=== PATIENT | female | born 1990 | race Caucasian/White ===

== ENCOUNTER → 2022-11-29 09:45 | Outpatient (CLI) | payer OTHER, SELFPAY ==
--- NOTE | ~2022-11-29 | US_ITS ---
US soft tissue abdomen 11/29/2022 10:14 Indication: Palpable abnormality of the umbilicus Procedure: High-resolution ultrasound of the umbilical location Comparison: No prior studies for comparison. Findings: There is hypoechoic soft tissue at the umbilicus measuring 2.4 x 1.3 x 2 cm with internal v ascularity. No evidence for bowel intrusion into the umbilicus. Impression: 1: Hypoechoic soft tissue at the umbilicus measuring up to 2.4 cm, possibly fat-containing umbilical hernia. Consider correlation with CT. Reviewed, dictated and finalized at location B. Impression: 1: Hypoechoic soft tissue at the umbilicus measuring up to 2.4 cm, possibly fat -containing umbilical hernia. Consider correlation with CT.
== END ==
PROVIDERS: PCP Nurse Practitioner; Visit Provider Nurse Practitioner
DX: K42.9 Umbilical hernia without obstruction or gangrene (principal)
CPT/HCPCS: 76705

== ENCOUNTER 2024-05-10 20:22 | Emergency (ER) | payer OTHER, BC, SELFPAY ==
--- NOTE | ~2024-05-10 | XR_ITS ---
XR chest 1V portable Ordering provider: Joesph Villegas MD History: 34 years Female with . cough . Comparison: None. FINDINGS: MEDIASTINUM: The cardiac silhouette is not enlarged. LUNGS: No infiltrates, effusions or pneumothorax. OTHER: No free air under the diaphragm. IMPRESSION: No acute cardiopulmonary pathology. Reviewed, dictated and finalized at location A.
[2024-05-10 20:35] VITALS: BP 147/93; PULSE 69; RESP 20; TEMP 36.7; O2SAT 100
[2024-05-10 22:21] VITALS: BP 163/98; PULSE 73; RESP 17; TEMP 36.5; O2SAT 100
[2024-05-10 22:43] LABS: Basophils Percent Auto 0.5 % (0.2-1.2); Eosinophils Absolute Auto 0.1 K/mm3 (0-0.3); Eosinophils Percent Auto 0.9 % (0-4.4); Hematocrit 41.9 % (37.0-47.0); Hemoglobin 13.7 g/dL (12.0-15.0); Immature Granulocyte Absolute 0.02 K/mm3 (0.00-0.031); Immature Granulocyte Percent A 0.2 % (0-0.5); Lymphocytes Absolute Auto 2.78 K/mm3 (0.9-3.2); Lymphocytes Percent Auto 32.6 % (18.3-44.2); Mean Corpuscular HGB Conc 32.7 g/dl (32-36); Mean Corpuscular Hemoglobin 30.4 pg (26-34); Mean Corpuscular Volume 93.1 fl (80-100); Mean Platelet Volume 10.2 fl (7.4-10.4); Monocytes Absolute Auto 0.8 K/mm3 (0.1-0.6); Monocytes Percent Auto 8.8 % (2.6-8.5); Neutrophils Absolute Auto 4.9 K/mm3 (1.3-6.7); Platelet Count Result 311 k/mm3 (150-375); Red Cell Distribution Width 11.9 % (11.5-14.5); White Blood Count 8.5 K/mm3 (4.5-10.0)
[2024-05-10 22:56] LABS: Alanine Aminotransferase 25 U/L (6-35); Albumin Level 4.5 g/dL (3.5-5.1); Alkaline Phosphatase 63 U/L (38-126); Anion Gap 11 mmol/L (4-12); Aspartate Amino Transferase 30 U/L (14-36); Bilirubin,Total 0.5 mg/dL (0.2-1.3); Blood Urea Nitrogen 11 mg/dL (7-17); Calcium 9.2 mg/dL (8.4-10.2); Carbon Dioxide 29 mmol/L (22-30); Chloride 99 mmol/L (98-107); Estimated CRCL calculation 100 ml/min; Estimated Glomerular Filt Rate > 60; Glucose 110 mg/dL (65-110); Potassium 3.5 mmol/L (3.4-5.0); Sodium 139 mmol/L (137-145)
--- NOTE | 2024-05-10 23:28 | ED.GENADULT ---
HPI - General Adult General Chief complaint: Headache Stated complaint: wyatt, vomiting blood Time Seen by Provider: 05/10/24 22:18 History of Present Illness HPI narrative: 34-year-old female presenting to the emergency department for evaluation for headache that is been ongoing today. Patient has had nausea and vomiting secondary to this. Patient states he did have an episode of bloody emesis. Related Data Allergies Allergy/AdvReac Type Severity Reaction Status Date / Time morphine Allergy Chest Pain Verified 05/10/24 20:42 Review of Systems Review of Systems: All systems reviewed & are unremarkable except as noted in HPI and below Exam Narrative: APPEARANCE: Well appearing, no pain, no distress, well-nourished. HEAD: normocephalic, atraumatic. EYES: PERRLA/EOMI, conjunctivae clear. NOSE: Normal no drainage EARS:TMS clear with good light reflex. THROAT: Pharynx clear, no exudate. NECK: Supple. No adenopathy, no masses. RESPIRATORY: Airway patent, respirations nonlabored. Clear to auscultation bilaterally, no rales, rhonchi, wheezing. CARDIOVASCULAR: Regular rate and rhythm without murmurs rubs or gallops. ABDOMINAL: Soft, nontender, nondistended, normal bowel sounds MUSCULOSKELETAL: Moves all extremities. Strength/ROM intact, No edema, No calf tenderness. NEURO: Alert. Cranial nerves II through XII intact. Grossly intact SKIN: Warm, dry. Normal Color Course Vital Signs Vital signs: Vital Signs Temperature 98.0 F 05/10/24 20:35 Pulse Rate 69 05/10/24 20:35 Respiratory Rate 20 05/10/24 20:35 Blood Pressure 147/93 H 05/10/24 20:35 Pulse Oximetry 100 05/10/24 20:35 Oxygen Delivery Room Air 05/10/24 20:35 Temperature 97.7 F 05/10/24 23:44 Pulse Rate 60 05/10/24 23:44 Respiratory Rate 16 05/10/24 23:44 Blood Pressure 150/81 H 05/10/24 23:44 Pulse Oximetry 98 05/10/24 23:44 Oxygen Delivery Room Air 05/10/24 20:35 Medical Decision Making [facility] Narrative Medical decision making narrative: 34-year-old female presenting to the emergency department for evaluation for headache with nausea and vomiting. Patient did feel significantly improved with treatment. Patient was afebrile with no leukocytosis and a stable hemoglobin of 13.7. Patient had a normal neuro exam. Patient was treated with medications for migraine and did feel significantly improved. After treatment patient was requesting discharge to home. Suspect migraine. Patient has no further hematemesis in the emergency department. Patient denies any blood thinners. Low concern for significant GI bleed. Patient has no epigastric or chest pain. Vital Signs Vital Signs: Vital Signs Temperature 98.0 F 05/10/24 20:35 Pulse Rate 69 05/10/24 20:35 Respiratory Rate 20 05/10/24 20:35 Blood Pressure 147/93 H 05/10/24 20:35 Pulse Oximetry 100 05/10/24 20:35 Oxygen Delivery Room Air 05/10/24 20:35 Temperature 97.7 F 05/10/24 23:44 Pulse Rate 60 05/10/24 23:44 Respiratory Rate 16 05/10/24 23:44 Blood Pressure 150/81 H 05/10/24 23:44 Pulse Oximetry 98 05/10/24 23:44 Oxygen Delivery Room Air 05/10/24 20:35 Lab Data 05/10/24 22:33 05/10/24 22:33 Labs: Lab Results 05/10/24 05/10/24 05/10/24 Range/Units 22:33 23:36 23:44 WBC 8.5 (4.5-10.0) K/mm3 RBC 4.50 (4.2-5.4) M/mm3 Hgb 13.7 (12.0-15.0) g/dL Hct 41.9 (37.0-47.0) % MCV 93.1 (80-100) fl MCH 30.4 (26-34) pg MCHC 32.7 (32-36) g/dl RDW 11.9 (11.5-14.5) % Plt Count 311 (150-375) k/mm3 MPV 10.2 (7.4-10.4) fl Immature Gran % (Auto) 0.2 (0-0.5) % Neut % (Auto) 57.0 (45.5-73.1) % Lymph % (Auto) 32.6 (18.3-44.2) % [place] % (Auto) 8.8 H (2.6-8.5) % Eos % (Auto) 0.9 (0-4.4) % Baso % (Auto) 0.5 (0.2-1.2) % Lymph # (Auto) 2.78 (0.9-3.2) K/mm3 [place] # (Auto) 0.8 H (0.1-0.6) K/mm3 Eos # (Auto) 0.1 (0-0.3) K/
[2024-05-10] MEDS: diphenhydrAMINE HCl INJ 50 MG/ML VIAL 25 MG IV PUSH (23:29)
[2024-05-10] MEDS: ONDANSETRON INJ 4 MG/2 ML VIAL IV PUSH (23:29)
[2024-05-10] MEDS: PROCHLORPERAZINE EDISYLATE 10 MG/2 ML VIAL IV PUSH (23:29)
[2024-05-10] MEDS: SODIUM CHLORIDE 0.9% IV 1,000 ML 999 ML IV CONT (23:30)
[2024-05-10 23:44] VITALS: BP 150/81; PULSE 60; RESP 16; TEMP 36.5; O2SAT 98
[2024-05-10 23:47] LABS: Add Urine Microscopic? YES; Appearance Urine Clear (Clear); Bacteria Urine 4+ /hpf; Bilirubin Urine Negative (Negative); Blood Urine Negative (Negative); Color Urine Yellow (Yellow); Glucose Urine UA Negative (Negative); Ketones Urine Trace mg/dL (Negative); Leukocyte Esterase Ur 2+ LEU/UL (Negative); Nitrate Urine Positive (Negative); Non Pathogenic Casts 0-2; Protein Urine Negative (Negative); RBC Urine 0-2 /hpf (0-2); Squamous Epithelial Cell Urine Occasional /hpf (Few); WBC Urine 21-50 /hpf (0-3); pH Urine 6.5 (5.0-9.0)
[2024-05-10 23:49] LABS: BEDSIDEPREGUCG Negative (Negative)
[2024-05-10] MEDS: KETOROLAC 15 MG/ML VIAL (*BKC) IV PUSH (23:57)
== END 2024-05-11 01:00 | disposition home or self-care (01) ==
PROVIDERS: Emergency Provider Emergency Medicine; PCP Nurse Practitioner
DX: R51.9 Headache, unspecified (principal); R82.998 Other abnormal findings in urine
CPT/HCPCS: 36415; 71045; 80053; 81001; 81025; 85025; 87077; 87086; 87088; 87186; 96361; 96374; 96375; 99284; J0780; J1200; J1885; J2405; J7030